=== PATIENT | male | born 1980 | race Caucasian/White ===

== ENCOUNTER 2018-04-21 19:43 | Emergency (ER) | payer SELFPAY ==
[~2018-04-21] VITALS: Ht 149.9 cm; Wt 59.7 kg
[2018-04-21 19:46] VITALS: Ht 149.9 cm; Wt 59.7 kg
[2018-04-21] MEDS ORDERED: CEPHALEXIN 500 MG CAP PO ONE (21:30)
[2018-04-21] MEDS ORDERED: DIPHTH/TET/ACEL PERTUSS (ADULT) 0.5 ML VIAL IM* ONE (21:30)
[2018-04-21] MEDS ORDERED: TRIMETHOPRIM/SULFAMETHOX (DS) TAB PO ONE (21:30)
[2018-04-21] MEDS ORDERED: IBUPROFEN 800 MG TAB PO ONE (21:30)
[2018-04-21] MEDS ORDERED: CEPH-443 PO (22:01)
[2018-04-21] MEDS ORDERED: SULF1TAB31 PO (22:01)
[2018-04-21] MEDS ORDERED: IBUP-1542 PO (22:01)
[2018-04-21 22:21] VITALS: BP 119/64; PULSE 82; RESP 16
--- NOTE | 2018-04-21 23:19 | ERD ---
ER Documentation Chief Complaint Chief Complaint RT KNEE PAIN, REDNESS AND SWELLING X3 DAYS S/P INJURY W/ NAIL HPI Patient is a 37-year-old male with no medical problems who presents with right leg pain. He had a wound to his right knee that started 3 days ago. He thought that maybe he got scratched by a nail or bit by a bug but has an ulcer to his right knee with redness down the right leg. He said that it is gotten worse over the past 3 days. He has had no treatment as of yet. He does report subjective fevers. Upon review of old medical records this is the patient's first visit to the emergency department. The patient does not currently have a primary doctor. ROS All systems reviewed and are negative except as per history of present illness. Medications Home Meds Active Scripts Ibuprofen* (Motrin*) 600 Mg Tab, 600 MG PO Q6H PRN for PAIN AND OR ELEVATED TEMP, #30 TAB Prov:ELIZABETH MEYER MD 04/21/18 Cephalexin* (Keflex*) 500 Mg Capsule, 500 MG PO QID for 7 Days, CAP Prov:ELIZABETH MEYER MD 04/21/18 Sulfamethoxazole/Trimethoprim* (Bactrim Ds* Tablet) 1 Each Tablet, 1 TAB PO BID, #14 TAB Prov:ELIZABETH MEYER MD 04/21/18 Allergies Allergies: Coded Allergies: No Known Allergy (Unverified , 04/21/18) PMhx/Soc Medical and Surgical Hx: pt denies Medical Hx, pt denies Surgical Hx Hx Alcohol Use: No Hx Substance Use: No Hx Tobacco Use: No Smoking Status: Never smoker FmHx Family History: No diabetes Physical Exam Vitals Vital Signs Date Temp Pulse Resp B/P (MAP) Pulse Ox O2 O2 Flow FiO2 Time Delivery Rate 04/21/18 98.3 82 16 119/64 100 Room Air 22:21 (82) 04/21/18 100.0 85 19 123/67 100 19:46 (85) Physical Exam Const: No acute distress Head: Atraumatic Eyes: Normal Conjunctiva ENT: Normal External Ears, Nose and Mouth. Neck: Full range of motion. No meningismus. Resp: Clear to auscultation bilaterally Cardio: Regular rate and rhythm, no murmurs Abd: Soft, non tender, non distended. Normal bowel sounds Skin: 2 x 2 centimeter ulcer to the right lateral knee, induration and erythema, lateral portion of the right leg from the knee to above the ankle consistent with cellulitis but no sign of abscess or Necrotizing fasciitis Back: No midline or flank tenderness Ext: No cyanosis, or edema, no joint space infection of the right knee, easily able to flex and extend at the knee without difficulty Neur: Awake and alert Psych: Normal Mood and Affect Results 24 hrs Current Medications Medications Dose Sig/Dameon Start Time Status Last (Trade) Ordered Route PRN Stop Time Admin Dose Reason Admin Ibuprofen 800 mg ONCE ONCE 04/21/18 DC 04/21/18 (Motrin) PO 21:30 21:18 04/21/18 21:31 1 tab ONCE ONCE 04/21/18 DC 04/21/18 Trimethoprim/ PO 21:30 21:19 04/21/18 21:31 Sulfamethoxaz ole (Bactrim (Ds)) Cephalexin 500 mg ONCE ONCE 04/21/18 DC 04/21/18 (Keflex) PO 21:30 21:19 04/21/18 21:31 Diphtheria/ 0.5 ml ONCE ONCE 04/21/18 DC 04/21/18 Tetanus/Acell IM* 21:30 21:38 Pertussis 04/21/18 21:31 (Adacel) Procedures/MDM X-ray shows no foreign body per radiology. Patient is a 37-year-old male who presents with cellulitis to the right leg. He is not a diabetic or smoker. He is otherwise well-appearing and I doubt sepsis. The patient will be treated with Keflex and Bactrim and the first doses were given in the emergency department. The patient will need to follow-up closely with a local clinics within 48 hours for wound check. He can return for worsening symptoms. Departure Diagnosis: Primary Impression: Cellulitis Site of cellulitis: extremity Site of cellulitis of extremity: lower extremity Laterality: right Qualified Codes: L03.115 - Cellulitis of right lower limb Additional Impression: Knee pain Chronicity: acute Laterality: right Qualified Codes: M25.561 - Pain in right knee Condition: Fair Patient Instructions: Cellulitis [facility] Usted se renteria hecho un examen mdico de control que le indica que no est en dulce condicin que requiera tratamiento urgente en el Departamento de Emergencia. Un estudio ms profundo y el tratamiento de huston condicin pueden esperar sin ningn riesgo hasta que usted sea atendida/o en el consultorio de huston mdico o dulce clnica. Es responsabilidad suya arreglar dulce earnestine para el seguimiento del nieves. MANEJO DE CONDICIONES NO URGENTES EN EL FUTURO 1) Si usted tiene un mdico de atencin primaria: Usted debera llamar a huston mdico de atencin primaria antes de venir al departamento de emergencia. Despus de las horas de consultorio, huston doctor o huston asociado/a est disponible por telfono. El mdico o enfermero de raiza en el servicio telefnico puede asesorarle por radha medio para atender el problema, o nieves contrario se puede programar dulce earnestine. 2) Si usted no tiene un mdico de atencin primaria: Llame al mdico o clnica de referencia que aparece abajo chasity las horas de consultorio para hacer dulce earnestine para que le vean. CLINICAS: [place] [id number] [phone] [facility] [phone] [facility]. [facility] [phone] [facility]. [place] [id number] [phone] [facility]. [place] [id number] [phone] [facility]. [phone] Additional Instructions: Llame al doctor MAANA y sakshi dulce EARNESTINE PARA DENTRO DE 1-2 SOLO.Dgale a la secretaria que nosotros le instruimos hacer esta earnestine.Avise o llame si huston cond icin se empeora antes de la earnestine. Regresa aqui si peor o no mejor. ELIZABETH MEYER MD Apr 21, 2018 23:19
== END 2018-04-21 22:23 | disposition home or self-care (01) ==
LOC: E/R 19:43
DX: L03.115 Cellulitis of right lower limb (principal)
CPT/HCPCS: 73562; 90471; 90715